=== PATIENT | male | born 1970 | race Caucasian/White ===

== ENCOUNTER 2023-01-29 15:23 | Emergency (ER) | payer OTHER ==
[~2023-01-29] VITALS: Ht 167.6 cm; Wt 75.3 kg
[2023-01-29 17:17] VITALS: BP 132/86
== END 2023-01-29 17:18 | disposition home or self-care (01) ==
LOC: ED 15:23
DX: S05.02XA Injury of conjunctiva and corneal abrasion without foreign body, left eye, initial encounter (principal); W22.8XXA Striking against or struck by other objects, initial encounter; Y93.67 Activity, basketball